=== PATIENT | female | born 1955 | race Caucasian/White ===

== ENCOUNTER 2017-04-11 16:14 | Emergency (ER) | payer SELFPAY, OTHER | END 2017-04-11 21:29 | disposition left against medical advice (07) | LOC: E/R 16:14 | DX: Z53.21 Procedure and treatment not carried out due to patient leaving prior to being seen by health care provider (principal) ==

== ENCOUNTER 2017-04-12 14:22 | Inpatient (IN) | payer OTHER ==
[2017-04-12] MEDS ORDERED: morphine 4 MG/ML VIAL IV (17:20)
[2017-04-12] MEDS: ONDANSETRON 4 MG INJ IV (17:31)
[2017-04-12] MEDS: ACETAMINOPHEN 500 MG TAB PO (17:39)
[2017-04-12 17:44] LABS: ADD MAN DIFF? NO
[2017-04-12 17:46] LABS: WHITE BLOOD COUNT 7.8 10^3/ul (4.8-10.8)
[2017-04-12 17:46] LABS: BASOPHILS % 0.4 % (0.0-2.0); EOSINOPHILS # 0.2 10^3/ul (0.0-0.5); EOSINOPHILS % 2.9 % (0.0-7.0); HEMATOCRIT 26.4 % (37.0-47.0); HEMOGLOBIN 8.8 g/dl (12.0-16.0); LYMPHOCYTES # 2.9 10^3/ul (0.8-2.9); LYMPHOCYTES % 37.2 % (15.0-51.0); MEAN CORPUSCULAR HEMOGLOBIN 30.8 pg (29.0-33.0); MEAN CORPUSCULAR HGB CONC 33.3 g/dl (32.0-37.0); MEAN CORPUSCULAR VOLUME 92.3 fl (82.0-101.0); MEAN PLATELET VOLUME 10.2 fl (7.4-10.4); MONOCYTE # 0.6 10^3/ul (0.3-0.9); MONOCYTES % 8.2 % (0.0-11.0); NEUTROPHILS % 50.7 % (39.0-77.0); NUCLEATED RED BLOOD CELLS # 0.1 10^3/ul (0.0-0.0); NUCLEATED RED BLOOD CELLS% 0.8 /100WBC (0.0-0.0); PLATELET COUNT 234 10^3/UL (140-415); RED BLOOD COUNT 2.86 10^6/ul (4.20-5.40); RED CELL DISTRIBUTION WIDTH 13.7 % (11.5-14.5)
[2017-04-12 18:02] LABS: ADD UMIC NO; UR ASCORBIC ACID NEGATIVE (NEGATIVE); UR BACTERIA FEW /HPF (NONE SEEN); UR BILIRUBIN (Dip) NEGATIVE (NEGATIVE); UR BLOOD (Dip) NEGATIVE (NEGATIVE); UR CALCIUM OXALATE CRYSTAL MODERATE /HPF (NONE SEEN); UR CLARITY SLIGHTLY CLOUDY (CLEAR); UR COLOR YELLOW (YELLOW); UR GLUCOSE (Dip) NEGATIVE (NEGATIVE); UR KETONES (Dip) NEGATIVE (NEGATIVE); UR LEUKOCYTE ESTERASE (Dip) NEGATIVE Leu/ul (NEGATIVE); UR MUCUS FEW /HPF (NONE SEEN); UR NITRITE (Dip) NEGATIVE (NEGATIVE); UR RBC 1 /HPF (0-5); UR SQUAMOUS EPITHELIAL CELL FEW /HPF (FEW); UR TOTAL PROTEIN (Dip) NEGATIVE (NEGATIVE); UR UROBILINOGEN (Dip) NEGATIVE (NEGATIVE); UR WBC 2 /HPF (0-5)
[2017-04-12 18:07] LABS: ALANINE AMINOTRANSFERASE 34 IU/L (13-69); ALBUMIN 4.2 g/dl (3.3-4.9); ALBUMIN/GLOBULIN RATIO 1.55; ALKALINE PHOSPHATASE 76 IU/L (42-121); ANION GAP 15 (8-16); ASPARTATE AMINO TRANSFERASE 23 IU/L (15-46); BLOOD UREA NITROGEN 18 mg/dl (7-20); CALCIUM 9.4 mg/dl (8.4-10.2); CARBON DIOXIDE 27 mmol/L (21-31); CHLORIDE 106 mmol/L (97-110); CREATININE 0.81 mg/dl (0.44-1.00); GLUCOSE 102 mg/dl (70-220); LIPASE 102 U/L (23-300); POTASSIUM 3.7 mmol/L (3.5-5.1); SODIUM 144 mmol/L (135-144); TOTAL PROTEIN 6.9 g/dl (6.1-8.1)
[2017-04-12 18:25] LABS: OCCULT BLOOD STOOL NEGATIVE (NEGATIVE)
[2017-04-12] MEDS: SOD CHLORIDE 0.9% 1,000 ML IV (18:58)
[2017-04-12] MEDS ORDERED: ONDANSETRON 4 MG INJ IV (23:00)
[2017-04-12] MEDS ORDERED: morphine 2 MG INJ IV (23:00)
[2017-04-13] MEDS: ACETAMINOPHEN 325 MG TAB PO ×2 (00:33→09:38)
[2017-04-13] MEDS: DEXTROSE 5%-0.45% NACL 1,000 ML IV ×3 (00:35→19:00)
[2017-04-13] MEDS ORDERED: ALBUTEROL/IPRATROPIUM (NEB) 3 ML AMP HHN (03:30)
[2017-04-13] MEDS ORDERED: NACL 0.9% 3 ML SYG IV (03:30)
[2017-04-13] MEDS ORDERED: ONDANSETRON 4 MG INJ IV (03:30)
[2017-04-13] MEDS: PANTOPRAZOLE 40 MG INJ IV (05:28)
[2017-04-13 05:56] LABS: ADD MAN DIFF? NO
[2017-04-13 06:01] LABS: BASOPHILS % 0.6 % (0.0-2.0); EOSINOPHILS # 0.3 10^3/ul (0.0-0.5); EOSINOPHILS % 5.1 % (0.0-7.0); HEMATOCRIT 20.8 % (37.0-47.0); HEMOGLOBIN 7.1 g/dl (12.0-16.0); LYMPHOCYTES # 2.4 10^3/ul (0.8-2.9); LYMPHOCYTES % 45.5 % (15.0-51.0); MEAN CORPUSCULAR HEMOGLOBIN 31.6 pg (29.0-33.0); MEAN CORPUSCULAR HGB CONC 34.1 g/dl (32.0-37.0); MEAN CORPUSCULAR VOLUME 92.4 fl (82.0-101.0); MEAN PLATELET VOLUME 10.5 fl (7.4-10.4); MONOCYTE # 0.4 10^3/ul (0.3-0.9); MONOCYTES % 8.3 % (0.0-11.0); NEUTROPHIL # 2.1 10^3/ul (1.6-7.5); NEUTROPHILS % 39.9 % (39.0-77.0); NUCLEATED RED BLOOD CELLS% 0.4 /100WBC (0.0-0.0); PLATELET COUNT 179 10^3/UL (140-415); RED BLOOD COUNT 2.25 10^6/ul (4.20-5.40); RED CELL DISTRIBUTION WIDTH 13.8 % (11.5-14.5)
[2017-04-13 06:01] LABS: WHITE BLOOD COUNT 5.3 10^3/ul (4.8-10.8)
[2017-04-13 06:30] LABS: IRON 56 ug/dl (35-150)
[2017-04-13 06:35] LABS: ALANINE AMINOTRANSFERASE 30 IU/L (13-69); ALBUMIN 3.2 g/dl (3.3-4.9); ALBUMIN/GLOBULIN RATIO 1.23; ALKALINE PHOSPHATASE 49 IU/L (42-121); ANION GAP 10 (8-16); ASPARTATE AMINO TRANSFERASE 18 IU/L (15-46); BILIRUBIN,INDIRECT 0.1 mg/dl (0-1.1); BILIRUBIN,TOTAL 0.1 mg/dl (0.2-1.3); BLOOD UREA NITROGEN 12 mg/dl (7-20); CALCIUM 8.2 mg/dl (8.4-10.2); CARBON DIOXIDE 26 mmol/L (21-31); CHLORIDE 110 mmol/L (97-110); GLUCOSE 128 mg/dl (70-220); PHOSPHORUS 3.5 mg/dl (2.5-4.9); POTASSIUM 3.7 mmol/L (3.5-5.1); SODIUM 142 mmol/L (135-144); TOTAL PROTEIN 5.8 g/dl (6.1-8.1)
[2017-04-13 06:40] LABS: % IRON SATURATION 19 % SAT (22-52); TOTAL IRON BINDING CAPACITY 294 ug/dl (241-421)
[2017-04-13 07:07] LABS: FERRITIN 25.2 ng/ml (11.1-264.0)
[2017-04-13] MEDS: LOSARTAN 25 MG TAB PO (09:00)
[2017-04-13] MEDS: CALCIUM/VITAMIN D (500/200) TAB PO (09:39)
[2017-04-13] MEDS: BISACODYL (EC) 5 MG TAB PO ×2 (09:42→17:40)
[2017-04-13] MEDS: ELVITEG/COBI/EMTRIC/TENOFO ALA 1 EACH TABLET PO (11:15)
[2017-04-13 12:27] LABS: HEMATOCRIT 21.6 % (37.0-47.0); HEMOGLOBIN 7.4 g/dl (12.0-16.0)
[2017-04-13 14:58] LABS: IMMEDIATE SPIN CROSSMATCH 1 1
[2017-04-13] MEDS: SOD CHLORIDE 0.9% 250 ML IV* (15:15)
[2017-04-13] MEDS: MAGNESIUM CITRATE 300 ML BTL PO (17:40)
[2017-04-13] MEDS: POLYETHYLENE GLYCOL 3350 119 GM POWDER PO (17:57)
[2017-04-13 18:52] LABS: HEMATOCRIT 25.6 % (37.0-47.0)
[2017-04-13 23:37] LABS: OCCULT BLOOD STOOL POSITIVE (NEGATIVE)
[2017-04-14 00:43] LABS: HEMATOCRIT 24.7 % (37.0-47.0); HEMOGLOBIN 8.5 g/dl (12.0-16.0)
[2017-04-14] MEDS: DEXTROSE 5%-0.45% NACL 1,000 ML IV ×2 (05:14→15:29)
[2017-04-14] MEDS: PANTOPRAZOLE 40 MG INJ IV (05:14)
[2017-04-14 06:06] LABS: ADD MAN DIFF? NO
[2017-04-14 06:14] LABS: WHITE BLOOD COUNT 5.1 10^3/ul (4.8-10.8)
[2017-04-14 06:14] LABS: BASOPHILS % 0.6 % (0.0-2.0); EOSINOPHILS # 0.2 10^3/ul (0.0-0.5); EOSINOPHILS % 4.7 % (0.0-7.0); HEMATOCRIT 25.7 % (37.0-47.0); HEMOGLOBIN 8.8 g/dl (12.0-16.0); LYMPHOCYTES # 2.1 10^3/ul (0.8-2.9); LYMPHOCYTES % 41.3 % (15.0-51.0); MEAN CORPUSCULAR HEMOGLOBIN 31.1 pg (29.0-33.0); MEAN CORPUSCULAR HGB CONC 34.2 g/dl (32.0-37.0); MEAN CORPUSCULAR VOLUME 90.8 fl (82.0-101.0); MEAN PLATELET VOLUME 10.4 fl (7.4-10.4); MONOCYTE # 0.5 10^3/ul (0.3-0.9); MONOCYTES % 8.8 % (0.0-11.0); NEUTROPHIL # 2.2 10^3/ul (1.6-7.5); NUCLEATED RED BLOOD CELLS # 0.1 10^3/ul (0.0-0.0); PLATELET COUNT 211 10^3/UL (140-415); RED BLOOD COUNT 2.83 10^6/ul (4.20-5.40); RED CELL DISTRIBUTION WIDTH 14.1 % (11.5-14.5)
[2017-04-14 07:22] LABS: ANION GAP 13 (8-16); BLOOD UREA NITROGEN 8 mg/dl (7-20); CALCIUM 8.3 mg/dl (8.4-10.2); CARBON DIOXIDE 28 mmol/L (21-31); CHLORIDE 104 mmol/L (97-110); CREATININE 0.61 mg/dl (0.44-1.00); GLUCOSE 115 mg/dl (70-220); MAGNESIUM 2.5 mg/dl (1.7-2.5); PHOSPHORUS 3.7 mg/dl (2.5-4.9); POTASSIUM 3.4 mmol/L (3.5-5.1); SODIUM 142 mmol/L (135-144)
[2017-04-14] MEDS: LOSARTAN 25 MG TAB PO (08:53)
[2017-04-14] MEDS: CALCIUM/VITAMIN D (500/200) TAB PO (08:54)
[2017-04-14] MEDS: ELVITEG/COBI/EMTRIC/TENOFO ALA 1 EACH TABLET PO (08:55)
[2017-04-14] MEDS ORDERED: DIPHENHYDRAMINE 2%/ZINC 28.4 GM CR TOP (10:00)
[2017-04-14] MEDS: DIPHENHYDRAMINE 25 MG CAP PO (10:11)
[2017-04-14] MEDS ORDERED: ONDANSETRON 4 MG INJ IV (10:30)
[2017-04-14] MEDS ORDERED: HYDROmorphONE (0.2 MG/ML) 10ML SYG IV (10:30)
[2017-04-14] MEDS: LIDOCAINE 2% (SDV) 5 ML INJ (10:41)
[2017-04-14] MEDS: PROPOFOL 20 ML (10:41)
[2017-04-14] MEDS: EPHEDrine SULFATE 50 MG/5 ML SYG (10:52)
[2017-04-14 12:26] LABS: HEMATOCRIT 27.1 % (37.0-47.0); HEMOGLOBIN 9.4 g/dl (12.0-16.0)
[2017-04-14 18:19] LABS: HEMATOCRIT 25.4 % (37.0-47.0); HEMOGLOBIN 8.6 g/dl (12.0-16.0)
[2017-04-14] MEDS: POLYETHYLENE GLYCOL 3350 119 GM POWDER PO (19:45)
[2017-04-14] MEDS: MAGNESIUM CITRATE 300 ML BTL PO (19:45)
[2017-04-14] MEDS: BISACODYL (EC) 5 MG TAB PO (19:46)
[2017-04-15] MEDS: DEXTROSE 5%-0.45% NACL 1,000 ML IV (04:08)
[2017-04-15] MEDS: PANTOPRAZOLE 40 MG INJ IV (05:56)
[2017-04-15 06:39] LABS: ADD MAN DIFF? NO
[2017-04-15 06:43] LABS: BASOPHILS % 0.5 % (0.0-2.0); EOSINOPHILS # 0.4 10^3/ul (0.0-0.5); EOSINOPHILS % 7.1 % (0.0-7.0); HEMATOCRIT 26.9 % (37.0-47.0); HEMOGLOBIN 9.1 g/dl (12.0-16.0); LYMPHOCYTES # 1.9 10^3/ul (0.8-2.9); MEAN CORPUSCULAR HEMOGLOBIN 31.1 pg (29.0-33.0); MEAN CORPUSCULAR HGB CONC 33.8 g/dl (32.0-37.0); MEAN CORPUSCULAR VOLUME 91.8 fl (82.0-101.0); MEAN PLATELET VOLUME 10.4 fl (7.4-10.4); MONOCYTE # 0.6 10^3/ul (0.3-0.9); MONOCYTES % 9.9 % (0.0-11.0); NEUTROPHIL # 2.8 10^3/ul (1.6-7.5); NEUTROPHILS % 49.2 % (39.0-77.0); NUCLEATED RED BLOOD CELLS% 0.3 /100WBC (0.0-0.0); PLATELET COUNT 218 10^3/UL (140-415); RED BLOOD COUNT 2.93 10^6/ul (4.20-5.40); RED CELL DISTRIBUTION WIDTH 14.4 % (11.5-14.5)
[2017-04-15 06:43] LABS: WHITE BLOOD COUNT 5.8 10^3/ul (4.8-10.8)
[2017-04-15] MEDS ORDERED: PROPOFOL 200 MG INJ (07:00)
[2017-04-15 07:04] LABS: ANION GAP 11 (8-16); BLOOD UREA NITROGEN 3 mg/dl (7-20); CALCIUM 7.9 mg/dl (8.4-10.2); CARBON DIOXIDE 28 mmol/L (21-31); CHLORIDE 107 mmol/L (97-110); CREATININE 0.52 mg/dl (0.44-1.00); GLUCOSE 129 mg/dl (70-220); POTASSIUM 3.3 mmol/L (3.5-5.1); SODIUM 143 mmol/L (135-144)
[2017-04-15] MEDS: LOSARTAN 25 MG TAB PO (09:00)
[2017-04-15] MEDS: POTASSIUM CHLORIDE (SR) 20 MEQ TAB PO (10:09)
[2017-04-15] MEDS ORDERED: ONDANSETRON 4 MG INJ IV (12:00)
[2017-04-15] MEDS ORDERED: HYDROmorphONE (0.2 MG/ML) 10ML SYG IV (12:00)
[2017-04-15] MEDS: LIDOCAINE 2% (SDV) 5 ML INJ (12:04)
[2017-04-15] MEDS: EPHEDrine SULFATE 50 MG/5 ML SYG (12:04)
[2017-04-15] MEDS: PROPOFOL 20 ML (12:04)
[2017-04-15] MEDS: CALCIUM/VITAMIN D (500/200) TAB PO (16:37)
[2017-04-15] MEDS: ELVITEG/COBI/EMTRIC/TENOFO ALA 1 EACH TABLET PO (16:37)
[2017-04-16 05:50] LABS: ADD MAN DIFF? NO
[2017-04-16 06:00] LABS: BASOPHILS % 0.6 % (0.0-2.0); EOSINOPHILS # 0.4 10^3/ul (0.0-0.5); EOSINOPHILS % 6.8 % (0.0-7.0); LYMPHOCYTES # 2.3 10^3/ul (0.8-2.9); MEAN CORPUSCULAR HEMOGLOBIN 31.1 pg (29.0-33.0); MEAN CORPUSCULAR HGB CONC 33.3 g/dl (32.0-37.0); MEAN CORPUSCULAR VOLUME 93.4 fl (82.0-101.0); MEAN PLATELET VOLUME 10.1 fl (7.4-10.4); MONOCYTE # 0.5 10^3/ul (0.3-0.9); NEUTROPHIL # 3.1 10^3/ul (1.6-7.5); NEUTROPHILS % 48.3 % (39.0-77.0); NUCLEATED RED BLOOD CELLS% 0.3 /100WBC (0.0-0.0); PLATELET COUNT 225 10^3/UL (140-415); RED BLOOD COUNT 2.89 10^6/ul (4.20-5.40); RED CELL DISTRIBUTION WIDTH 14.2 % (11.5-14.5)
[2017-04-16 06:00] LABS: WHITE BLOOD COUNT 6.5 10^3/ul (4.8-10.8)
[2017-04-16] MEDS: PANTOPRAZOLE 40 MG INJ IV (06:19)
[2017-04-16 06:20] LABS: MAGNESIUM 2.2 mg/dl (1.7-2.5)
[2017-04-16 06:20] LABS: PHOSPHORUS 3.5 mg/dl (2.5-4.9)
[2017-04-16] MEDS: CALCIUM/VITAMIN D (500/200) TAB PO (08:39)
[2017-04-16] MEDS: LOSARTAN 25 MG TAB PO (08:39)
[2017-04-16] MEDS: ELVITEG/COBI/EMTRIC/TENOFO ALA 1 EACH TABLET PO (09:33)
[2017-04-16 13:40] LABS: ANION GAP 14 (8-16); BLOOD UREA NITROGEN 10 mg/dl (7-20); CALCIUM 8.1 mg/dl (8.4-10.2); CARBON DIOXIDE 24 mmol/L (21-31); CHLORIDE 106 mmol/L (97-110); CREATININE 0.68 mg/dl (0.44-1.00); GLUCOSE 127 mg/dl (70-220); POTASSIUM 3.4 mmol/L (3.5-5.1); SODIUM 141 mmol/L (135-144)
[2017-04-16] MEDS: POTASSIUM CHLORIDE (SR) 10 MEQ TAB PO (14:05)
== END 2017-04-16 15:10 | disposition home or self-care (01) | DRG 378 ==
LOC: FTE 14:22 → PP2 19:52
PROVIDERS: Internal Medicine
PROC: 0DJD8ZZ Inspection of Lower Intestinal Tract, Via Natural or Artificial Opening Endoscopic (ICD-10-PCS; principal; 2017-04-14 10:30)
PROC: 0DJD8ZZ Inspection of Lower Intestinal Tract, Via Natural or Artificial Opening Endoscopic (ICD-10-PCS; 2017-04-14 10:30)
PROC: 30233N1 Transfusion of Nonautologous Red Blood Cells into Peripheral Vein, Percutaneous Approach (ICD-10-PCS; 2017-04-14 10:30)
DX: K57.91 Diverticulosis of intestine, part unspecified, without perforation or abscess with bleeding (principal); D62 Acute posthemorrhagic anemia; I10 Essential (primary) hypertension; K92.1 Melena; K64.8 Other hemorrhoids
CPT/HCPCS: 36430; 74176; 80048; 80053; 81001; 81003; 82270; 82728; 83540; 83690; 83735; 84100; 85014; 85018; 85025; 86850; 86900; 86901; 86920; 87045; 93005